=== PATIENT | female | born 1995 | race African-American/Black ===

== ENCOUNTER 2018-03-21 08:12 | Emergency (ER) | payer MEDICAID ==
[2018-03-21] MEDS ORDERED: MAG HYDROX/AL HYDROX/SIMETH SUSP 30 ML UDCUP PO ONE (08:31)
[2018-03-21] MEDS ORDERED: LIDOCAINE 2% VISCOUS SOLN 20 ML UDCUP PO ONE (08:31)
[2018-03-21] MEDS ORDERED: METOCLOPRAMIDE HCL ORAL SOLN 10 MG/10 ML UDCUP PO ONE (08:31)
--- NOTE | 2018-03-21 08:33 | ER Document Report ---
ED General - General Chief Complaint: Abdominal Pain Stated Complaint: ABDOMINAL PAIN Time Seen by Provider: 03/21/18 08:23 Mode of Arrival: Ambulatory Information source: Patient Notes: 23-year-old female presents emergency department complaints of epigastric abdominal pain for the last few days. Patient denies any radiation of the pain. She denies any alleviating or exacerbating factors. She describes the pain as a dull aching sensation. Patient is having associated nausea but denies any vomiting, diarrhea, constipation, dysuria, hematuria, vaginal bleeding, vaginal discharge. Patient denies any medical problems. Patient denies any surgeries. Patient's not currently on any medications. Patient has not tried any [id number] medication for symptom relief. TRAVEL OUTSIDE OF THE [place] IN LAST 30 DAYS: No - HPI Onset: Last week Onset/Duration: Gradual Quality of pain: Achy Severity: Mild Associated symptoms: Nausea Exacerbated by: Denies Relieved by: Denies Similar symptoms previously: No Recently seen / treated by doctor: No - Related Data Allergies/Adverse Reactions: amoxicillin Allergy (Verified 03/21/18 08:14) Penicillins Allergy (Verified 03/21/18 08:14) Past Medical History - General Information source: Patient - Social History Smoking Status: Current Every Day Smoker Family History: Reviewed & Not Pertinent Review of Systems - Review of Systems Constitutional: No symptoms reported EENT: No symptoms reported Cardiovascular: No symptoms reported Respiratory: No symptoms reported Gastrointestinal: Nausea Genitourinary: No symptoms reported Female Genitourinary: No symptoms reported Musculoskeletal: No symptoms reported Skin: No symptoms reported Hematologic/Lymphatic: No symptoms reported Neurological/Psychological: No symptoms reported -: Yes All other systems reviewed and negative Physical Exam - Vital signs Vitals: Temp Pulse Resp BP Pulse Ox 97.8 F 73 14 114/74 100 03/21/18 08:17 03/21/18 08:17 03/21/18 08:17 03/21/18 08:17 03/21/18 08:17 - Notes Notes: PHYSICAL EXAMINATION: GENERAL: Well-appearing, well-nourished and in no acute distress. HEAD: Atraumatic, normocephalic. EYES: Pupils equal round and reactive to light, extraocular movements intact, conjunctiva are normal. ENT: Nares patent, oropharynx clear without exudates. Moist mucous membranes. NECK: Normal range of motion, supple without lymphadenopathy LUNGS: Breath sounds clear to auscultation bilaterally and equal. No wheezes rales or rhonchi. HEART: Regular rate and rhythm without murmurs ABDOMEN: Soft, epigastric tenderness to palpation, nondistended abdomen. No guarding, no rebound. No masses appreciated. Female : deferred Musculoskeletal: Normal range of motion, no pitting or edema. No cyanosis. NEUROLOGICAL: Cranial nerves grossly intact. Normal speech, normal gait. Normal sensory, motor exams PSYCH: Normal mood, normal affect. SKIN: Warm, Dry, normal turgor, no rashes or lesions noted. Course - Re-evaluation Re-evalutation: urine and urine are normal. Patient has tenderness in the epigastric area. No RUQ or LUQ tenderness. Likely has gastritis. Patient instructed to take OTC medication for symptom relief, to follow up with PCP this week, and to return for worsening sympotoms. - Vital Signs Vital signs: Temp Pulse Resp BP Pulse Ox 97.8 F 73 14 114/74 100 03/21/18 08:17 03/21/18 08:17 03/21/18 08:17 03/21/18 08:17 03/21/18 08:17 Discharge - Discharge Clinical Impression: Gastritis Condition: Good Disposition: HOME, SELF-CARE Instructions: Gastritis ([facility]) Prescriptions: Ondansetron [Zofran Odt 4 mg Tablet] 1 tab PO Q4H PRN #15 tab.rapdis PRN Reason: For Nausea/Vomiting Referrals: MIMI SANCHEZ MD [ACTIVE STAFF] - Follow up as needed
[2018-03-21 08:57] LABS: APPEARANCE,URINE SLIGHTLY-CLOUDY; BILIRUBIN,URINE NEGATIVE (NEGATIVE); COLOR,URINE YELLOW; GLUCOSE, URINE NEGATIVE (NEGATIVE); KETONES,URINE NEGATIVE (NEGATIVE); LEUKOCYTE ESTERASE,URINE NEGATIVE (NEGATIVE); NITRITE,URINE NEGATIVE (NEGATIVE); PROTEIN,URINE NEGATIVE (NEGATIVE); URINE SPECIFIC GRAVITY 1.017; UROBILINOGEN,URINE NEGATIVE mg/dL (<2.0)
[2018-03-21 09:29] VITALS: BP 95/59
== END 2018-03-21 09:30 | disposition home or self-care (01) ==
LOC: ER 08:12
DX: K29.70 Gastritis, unspecified, without bleeding (principal); F17.200 Nicotine dependence, unspecified, uncomplicated
CPT/HCPCS: 99284; 81025; 81001; J3490 ×3

== ENCOUNTER 2018-03-30 16:00 | Emergency (ER) | payer MEDICAID ==
[2018-03-30 16:54] LABS: ABSOLUTE EOSINOPHILS # (AUTO) 0.2 10^3/uL (0.0-0.6); ABSOLUTE LYMPHOCYTES (AUTO) 2.1 10^3/uL (0.5-4.7); ABSOLUTE MONOCYTES (AUTO) 0.3 10^3/uL (0.1-1.4); ABSOLUTE NEUT (AUTO) 2.2 10^3/uL (1.7-8.2); BASOPHILS % (AUTO) 0.9 % (0-2); EOSINOPHILS % (AUTO) 3.2 % (0-6); HEMATOCRIT 36.2 % (36.0-47.0); HEMOGLOBIN 11.9 g/dL (12.0-15.5); LYMPHOCYTES % (AUTO) 43.4 % (13-45); MEAN CORPUSCULAR HGB CONC 32.8 g/dL (32.0-36.0); MEAN CORPUSCULAR VOLUME 89 fl (80-97); MONOCYTES % (AUTO) 6.7 % (3-13); PLATELET COUNT 210 10^3/uL (150-450); RED BLOOD COUNT 4.08 10^6/uL (3.72-5.28); RED CELL DISTRIBUTION WIDTH 14.6 % (11.5-14.0); SEGMENTED NEUTROPHILS % (AUTO) 45.8 % (42-78); TOTAL CELLS COUNTED % (AUTO) 100 %; WHITE BLOOD COUNT 4.8 10^3/uL (4.0-10.5)
[2018-03-30 16:55] LABS: APPEARANCE,URINE CLEAR; BILIRUBIN,URINE NEGATIVE (NEGATIVE); COLOR,URINE STRAW; GLUCOSE, URINE NEGATIVE (NEGATIVE); KETONES,URINE NEGATIVE (NEGATIVE); LEUKOCYTE ESTERASE,URINE NEGATIVE (NEGATIVE); NITRITE,URINE NEGATIVE (NEGATIVE); PROTEIN,URINE NEGATIVE (NEGATIVE); URINE SPECIFIC GRAVITY 1.011; UROBILINOGEN,URINE NEGATIVE mg/dL (<2.0)
[2018-03-30 17:10] LABS: ANION GAP 12 (5-19); BLOOD UREA NITROGEN 13 mg/dL (7-20); CALCIUM 9.8 mg/dL (8.4-10.2); CARBON DIOXIDE 22 mmol/L (22-30); CHLORIDE 104 mmol/L (98-107); GLUCOSE 87 mg/dL (75-110); POTASSIUM 3.9 mmol/L (3.6-5.0); SODIUM 138.4 mmol/L (137-145)
[2018-03-30 17:37] LABS: EPITHELIALS (WET MOUNT) 4+ EPITHELIALS SEEN; T.VAGINALIS (WET MOUNT) NO TRICHOMONAS SEEN; WBCS (WET MOUNT) FEW WBCS SEEN; YEAST (WET MOUNT) NO YEAST SEEN
--- NOTE | 2018-03-30 17:49 | RADIOLOGY REPORT (SQ) ---
EXAM DESCRIPTION: U/S OB TRANSVAG W/DOPPLER COMPLETED DATE/TIME: 03/30/2018 5:20 pm REASON FOR STUDY: +preg with bleeding COMPARISON: None. TECHNIQUE: Endovaginal static and realtime grayscale images acquired of the pelvis. Additional selec deonna spectral and color Doppler images recorded. All images stored on PACs. CLINICAL AGE: Last menses 03/08/2018 BHCG: Pending LIMITATIONS: Pelvic bowel gas FINDINGS: UTERUS: No visualized intrauterine . Uterus measures 10 x 5.5 x 4 cm in size. E ndometrial stripe 1 cm in thickness. No intrauterine gestational sac is identified. RIGHT ADNEXA: Not visualized due to poor acoustic window. Pelvic bowel gas. LEFT ADNEXA: Left ovary measures 3.6 x 3.1 x 2.2 cm in size. Normal color flow. Normal left ovary a rterial Doppler. No left adnexal masses. Physiologic free fluid. FREE FLUID: Small amount of physiologic pelvic cul-de-sac fluid. OTHER: No other significant finding. IMPRESSION: NO VISUALIZED INTRA- OR EXTRAUTERINE . bHCG LEVEL NOT AVAILABLE FOR CORRELATION WITH US FINDINGS. ECTOPIC CANNOT BE EXCLUDED. FOLLOW-UP ULTRASOUND AND SERIAL BHCG LEVELS STRONGLY RECOMMENDED TO ACCURATELY ASSESS STATU S. TECHNICAL DOCUMENTATION: JOB ID: [id number] [employer]- All Rights Reserved Reading location - IP/workstation name: [email or web address]
[2018-03-30 18:22] LABS: CHLAM PCR NOT DETECTED (NOT DETECT); GON PCR NOT DETECTED (NOT DETECT)
[2018-03-30 18:52] VITALS: BP 112/58
--- NOTE | 2018-03-30 19:06 | ER Document Report ---
ED General - General Chief Complaint: Pelvic Pain Stated Complaint: ABDOMINAL PAIN Time Seen by Provider: 03/30/18 16:29 TRAVEL OUTSIDE OF THE [place] IN LAST 30 DAYS: No - HPI Patient complains to provider of: Pelvic pain Notes: Patient coming in for pelvic pain ongoing for the last few days. Patient states recently found out that she was . Patient came in for further evaluation of lower pelvic pain. Denies any discharge or dysuria denies any fevers chills nausea vomiting diarrhea patient states that she has been now 6 times with 4 abortions 1 child at home denies any vaginal bleeding. Patient denies any recent sexual intercourse denies any trauma. - Related Data Allergies/Adverse Reactions: amoxicillin Allergy (Verified 03/21/18 08:14) Penicillins Allergy (Verified 03/21/18 08:14) Past Medical History - Social History Smoking Status: Never Smoker Chew tobacco use (# tins/day): No Frequency of alcohol use: None Drug Abuse: None Family History: Reviewed & Not Pertinent Patient has suicidal ideation: No Patient has homicidal ideation: No Pulmonary Medical History: Reports: Hx Bronchitis Renal/ Medical History: Denies: Hx Peritoneal Dialysis Review of Systems - Review of Systems Constitutional: No symptoms reported EENT: No symptoms reported Cardiovascular: No symptoms reported Respiratory: No symptoms reported Gastrointestinal: Other - Pelvic pain Genitourinary: No symptoms reported Female Genitourinary: No symptoms reported Musculoskeletal: No symptoms reported Skin: No symptoms reported Hematologic/Lymphatic: No symptoms reported Neurological/Psychological: No symptoms reported Physical Exam - Vital signs Vitals: Temp Pulse Resp BP Pulse Ox 97.6 F 74 20 106/74 100 03/30/18 16:09 03/30/18 16:09 03/30/18 16:09 03/30/18 16:09 03/30/18 16:09 Interpretation: Normal - General General appearance: Appears well, Alert - HEENT Head: Normocephalic, Atraumatic Eyes: Normal Pupils: PERRL - Respiratory Respiratory status: No respiratory distress Chest status: Nontender Breath sounds: Normal Chest palpation: Normal - Cardiovascular Rhythm: Regular Heart sounds: Normal auscultation Murmur: No - Abdominal Inspection: Normal Distension: No distension Bowel sounds: Normal Tenderness: Nontender Organomegaly: No organomegaly - Back Back: Normal, Nontender - Extremities General upper extremity: Normal inspection, Nontender, Normal color, Normal ROM , Normal temperature General lower extremity: Normal inspection, Nontender, Normal color, Normal ROM , Normal temperature, Normal weight bearing. No: Emiliana's sign - Neurological Neuro grossly intact: Yes Cognition: Normal Orientation: AAOx4 Cecelia Coma Scale Eye Opening: Spontaneous Cecelia Coma Scale Verbal: Oriented [place] Coma Scale Motor: Obeys Commands [place] Coma Scale Total: 15 Speech: Normal Motor strength normal: LUE, RUE, LLE, RLE Sensory: Normal - Psychological Associated symptoms: Normal affect, Normal mood - Skin Skin Temperature: Warm Skin Moisture: Dry Skin Color: Normal Course - Re-evaluation Re-evalutation: 03/30/18 20:45 Patient's beta hCG was only 100 ultrasound does not show any signs of significant pathology also unfortunately at this time cannot confirm an IUP. I did explain to the patient that this will take some time until the beta-hCG level is between 2000 5000. I explained to the patient at this time she is at risk for having an ectopic and that we will need to continue to follow her clinically with serial beta hCGs. Patient was given ectopic precaution instructions patient is to return to ER immediately if any of these happen. Prescription for vitamins and nausea medication were given to the patient. Patient states understanding of the symptoms patient was discharged home. - Vital Signs Vital signs: Temp Pulse Resp BP Pulse Ox 98.2 F 69 20 112/58 L 100 03/30/18 18:52 03/30/18 18:52 03/30/18 18:52 03/30/18 18:52 03/30/18 18:52 - Laboratory Result Diagrams: 03/30/18 16:30 03/30/18 16:30 Laboratory results interpreted by me: 03/30/18 03/30/18 16:30 16:30 Hgb 11.9 L RDW 14.6 H Beta HCG, Quant 107.45 H Discharge - Discharge Clinical Impression: Pelvic pain during Condition: Good Disposition: HOME, SELF-CARE Instructions: Ectopic Precaution ([facility]), Pelvic Pain in ([facility] ) Additional Instructions: Laboratory test today shows that you are . Ultrasound is not showing signs of the in the uterus at this time however your beta hCG levels are too low to expect this. I would recommend following up for repeat beta-hCG testing in the next 48-72 hours. Continue take vitamins she may take the Reglan as prescribed for any nausea that she may have. Recommend follow-up with health department or women's healthcare for further care. Please review discharge instructions carefully return for any worrisome conditions. Prescriptions: Metoclopramide HCl [Reglan] 5 mg PO Q6 #30 tablet Prenat 115/Iron Fum/Folic/Dss [ 19 Tablet] 1 each PO DAILY #30 tablet Forms: Return to Work, Follow-Up Outpatient Testing
== END 2018-03-30 19:09 | disposition home or self-care (01) ==
LOC: ER 16:00
DX: O26.91 Pregnancy related conditions, unspecified, first trimester (principal); R10.2 Pelvic and perineal pain
CPT/HCPCS: 36415; 76817; 80048; 81001; 84702; 85025; 86900; 86901; 87210; 87491; 87591; 93976; 99284

== ENCOUNTER → 2018-04-01 | Outpatient (CLI) | payer MEDICAID | LOC: LAB 09:23 | PROVIDERS: ATTEND Emergency Medicine | DX: R10.9 Unspecified abdominal pain (principal); O26.899 Other specified pregnancy related conditions, unspecified trimester | CPT/HCPCS: 36415; 84702 ==

== ENCOUNTER 2018-04-18 07:45 | Emergency (ER) | payer MEDICAID ==
[2018-04-18 08:03] VITALS: BP 102/56
[2018-04-18] MEDS ORDERED: IBUPROFEN 600 MG TABLET PO ONE (08:14)
--- NOTE | 2018-04-18 09:16 | RADIOLOGY REPORT (SQ) ---
EXAM DESCRIPTION: WRIST RIGHT 3 VIEWS COMPLETED DATE/TIME: 04/18/2018 8:43 am REASON FOR STUDY: hit back of hand/wrist on door COMPARISON: None. NUMBER OF VIEWS: Three views. TECHNIQUE: AP, lateral, and oblique radiographic images acquired of the right wrist. LIMITATIONS: None. FINDINGS: MINERALIZATION: Normal. BONES: No acute fracture or dislocation. No worrisome bone lesions. Normal alignment. SOFT TISSUES: No soft tissue swelling. No foreign body. OTHER: No other significant finding. IMPRESSION: 1. NEGATIVE STUDY OF THE RIGHT WRIST. TECHNICAL DOCUMENTATION: JOB ID: [id number] [employer]- All Rights Reserved Reading location - IP/workstation name: [email or web address]
--- NOTE | 2018-04-18 09:17 | RADIOLOGY REPORT (SQ) ---
EXAM DESCRIPTION: HAND RIGHT 3 VIEWS COMPLETED DATE/TIME: 04/18/2018 8:43 am REASON FOR STUDY: hit back of hand/wrist on door COMPARISON: None. EXAM PARAMETERS: NUMBER OF VIEWS: Three views. TECHNIQUE: AP, lateral and oblique radiographic images acquired of the right hand. LIMITATIONS: None. FINDINGS: MINERALIZATION: Normal. BONES: No acute fracture or dislocation. No worrisome bone lesions. JOINTS: No effusions. SOFT TISSUES: No soft tissue swelling. No foreign body. OTHER: No other significant finding. IMPRESSION: 1. NEGATIVE STUDY OF THE RIGHT HAND. TECHNICAL DOCUMENTATION: JOB ID: [id number] [employer]- All Rights Reserved Reading location - IP/workstation name: [email or web address]
--- NOTE | 2018-04-18 09:23 | ER Document Report ---
ED Hand/Wrist Injury - General Chief Complaint: Wrist Pain Stated Complaint: RIGHT WRIST INJURY Time Seen by Provider: 04/18/18 08:04 Mode of Arrival: Ambulatory Information source: Patient Notes: Patient is a 23-year-old female who presents to the ER today for right wrist pain after accidentally back handing a door last night. Patient denies any numbness or tingling, states that it hurts a lot to try to rotate the wrist. TRAVEL OUTSIDE OF THE [place] IN LAST 30 DAYS: No - Related Data Allergies/Adverse Reactions: amoxicillin Allergy (Verified 04/18/18 07:47) Penicillins Allergy (Verified 04/18/18 07:47) Past Medical History - General Information source: Patient - Social History Smoking Status: Former Smoker Family History: Reviewed & Not Pertinent Patient has suicidal ideation: No Patient has homicidal ideation: No Pulmonary Medical History: Reports: Hx Bronchitis Renal/ Medical History: Denies: Hx Peritoneal Dialysis Review of Systems - Review of Systems Constitutional: No symptoms reported EENT: No symptoms reported Cardiovascular: No symptoms reported Respiratory: No symptoms reported Gastrointestinal: No symptoms reported Genitourinary: No symptoms reported Female Genitourinary: No symptoms reported Musculoskeletal: See HPI Skin: No symptoms reported Hematologic/Lymphatic: No symptoms reported Neurological/Psychological: No symptoms reported Physical Exam - Vital signs Vitals: Temp Pulse Resp BP Pulse Ox 98.4 F 92 18 102/56 L 100 04/18/18 08:01 04/18/18 08:01 04/18/18 08:01 04/18/18 08:01 04/18/18 08:01 - Notes Notes: PHYSICAL EXAMINATION: GENERAL: Well-appearing and in no acute distress. HEAD: Atraumatic, normocephalic. EYES: Pupils equal round and reactive to light, extraocular movements intact, sclera anicteric, conjunctiva are normal. The patient limited range of motion of the right wrist secondary to pain nECK: Normal range of motion, supple without lymphadenopathy LUNGS: CTAB and equal. No wheezes rales or rhonchi. HEART: Regular rate and rhythm without murmurs EXTREMITIES: Limited range of motion of the right wrist secondary to pain, no pitting edema. No cyanosis. NEUROLOGICAL: Cranial nerves grossly intact. Normal sensory/motor exams. PSYCH: Normal mood, normal affect. SKIN: Warm, Dry, normal turgor, no rashes or lesions noted Course - Re-evaluation Re-evalutation: 04/18/18 09:22 No edema, ecchymosis or deformity to the right wrist, patient placed in cockup splint for comfort, x-rays negative for any acute pathology today. - Vital Signs Vital signs: Temp Pulse Resp BP Pulse Ox 98.4 F 92 18 102/56 L 100 04/18/18 08:01 04/18/18 08:01 04/18/18 08:01 04/18/18 08:01 04/18/18 08:01 Discharge - Discharge Clinical Impression: Right wrist injury Qualifiers: Encounter type: initial encounter Qualified Code(s): S69.91XA - Unspecified injury of right wrist, hand and finger(s), initial encounter Condition: Stable Disposition: HOME, SELF-CARE Additional Instructions: Return immediately for any new or worsening symptoms. Follow up with primary care provider, call tomorrow to make followup appointment. Prescriptions: Ibuprofen [Motrin 600 Mg Tablet] 600 mg PO TID #15 tablet Referrals: VIPIN OREILLY MD [ACTIVE STAFF] - Follow up as needed
== END 2018-04-18 09:38 | disposition home or self-care (01) ==
LOC: ER 07:45
DX: S69.91XA Unspecified injury of right wrist, hand and finger(s), initial encounter (principal); W22.09XA Striking against other stationary object, initial encounter
CPT/HCPCS: 99283; 73130; 73110; L3908; J3490

== ENCOUNTER 2018-04-23 08:28 | Emergency (ER) | payer MEDICAID ==
--- NOTE | 2018-04-23 09:20 | ER Document Report ---
ED Medical Screen (RME) - General Chief Complaint: Abdominal Cramping Stated Complaint: CRAMPING/ABDOMINAL PAIN Time Seen by Provider: 04/23/18 09:20 Notes: Patient is a 23-year-old female, , approximately 7 weeks gravid that presents to the emergency department for chief complaint of pelvic cramping. Patient reports the pain started on , describes it as severe and constant in bilateral. ROS: Other than noted above, the 12 point review of systems was reviewed with the patient and were negative, all pertinent findings are included in the HPI. PHYSICAL EXAMINATION: Vital signs reviewed. GENERAL: Well-appearing, well-nourished and in no acute distress. HEAD: Atraumatic, normocephalic. EYES: Pupils equal round extraocular movements intact, conjunctiva are normal. ENT: Nares patent NECK: Normal range of motion CV: Heart regular rate and rhythm LUNGS: No respiratory distress Musculoskeletal: Normal range of motion NEUROLOGICAL: Normal speech PSYCH: Normal mood, normal affect. MDM: Patient seen and examined for rapid initial assessment. Vital signs reviewed. A comprehensive ED assessment and evaluation of the patient, analysis of test results and completion of the medical decision making process will be conducted by additional ED providers. *Note is created using voice recognition software and may contain spelling, syntax or grammatical errors. TRAVEL OUTSIDE OF THE [place] IN LAST 30 DAYS: No - Related Data Allergies/Adverse Reactions: amoxicillin Allergy (Verified 04/23/18 08:30) Penicillins Allergy (Verified 04/23/18 08:30) Past Medical History - Social History Frequency of alcohol use: None Drug Abuse: None Pulmonary Medical History: Reports: Hx Bronchitis Renal/ Medical History: Denies: Hx Peritoneal Dialysis Physical Exam - Vital signs Vitals: Temp Pulse Resp BP Pulse Ox 98.3 F 85 18 109/58 L 100 04/23/18 08:38 04/23/18 08:38 04/23/18 08:38 04/23/18 08:38 04/23/18 08:38 Course - Vital Signs Vital signs: Temp Pulse Resp BP Pulse Ox 98.3 F 85 18 109/58 L 100 04/23/18 08:38 04/23/18 08:38 04/23/18 08:38 04/23/18 08:38 04/23/18 08:38
[2018-04-23] MEDS ORDERED: ACETAMINOPHEN 325 MG TABLET PO ONE (09:21)
--- NOTE | 2018-04-23 09:44 | ER Document Report ---
ED General - General Chief Complaint: Abdominal Cramping Stated Complaint: CRAMPING/ABDOMINAL PAIN Time Seen by Provider: 04/23/18 09:20 TRAVEL OUTSIDE OF THE [place] IN LAST 30 DAYS: No - HPI Notes: Patient is a 23-year-old female, , approximately 7 weeks who presents to the ED complaining of intermittent pelvic cramping over the last 5 days. Patient states that she will have occasional nausea without vomiting. She reports 4 previous abortions. She is otherwise able to eat and drink without any difficulties. She is urinating normally. Patient states that on occasion she will have soft/loose stool, but is not watery. Patient has not had any confirmatory testing. Patient has not had any other vaginal discharge, odor, or bleeding. She has no concern of STD or STI and declines any testing at this time denies any headache, fever, URI, sore throat, chest pain, palpitations, syncope, cough, shortness of breath, wheeze, dyspnea, vomiting/ diarrhea, urinary retention, dysuria, hematuria, back pain, loss of control of bowel or bladder, numbness/tingling, saddle anesthesia, muscle paralysis/ weakness, or rash. - Related Data Allergies/Adverse Reactions: amoxicillin Allergy (Verified 04/23/18 08:30) Penicillins Allergy (Verified 04/23/18 08:30) Past Medical History - Social History Smoking Status: Never Smoker Frequency of alcohol use: None Drug Abuse: None Family History: Reviewed & Not Pertinent Patient has suicidal ideation: No Patient has homicidal ideation: No Pulmonary Medical History: Reports: Hx Bronchitis Renal/ Medical History: Denies: Hx Peritoneal Dialysis Review of Systems - Review of Systems -: Yes All other systems reviewed and negative Physical Exam - Vital signs Vitals: Temp Pulse Resp BP Pulse Ox 98.3 F 85 18 109/58 L 100 04/23/18 08:38 04/23/18 08:38 04/23/18 08:38 04/23/18 08:38 04/23/18 08:38 - Notes Notes: PHYSICAL EXAMINATION: GENERAL: Well-appearing, well-nourished and in no acute distress. LUNGS: Breath sounds clear to auscultation bilaterally and equal. No wheezes rales or rhonchi. HEART: Regular rate and rhythm without murmurs, rubs, gallops. ABDOMEN: Soft, nondistended abdomen. No guarding, no rebound. No masses appreciated. Normal bowel sounds present. No CVA tenderness bilaterally. + mild suprapubic tenderness. : deferred. Pt declined. Musculoskeletal: FROM to passive/active. Strength 5+/5. Extremities: No cyanosis, clubbing, or edema b/l. Peripheral pulses 2+. Capillary refill less than 3 seconds. NEUROLOGICAL: Normal speech, normal gait. PSYCH: Normal mood, normal affect. SKIN: Warm, Dry, normal turgor, no rashes or lesions noted. Course - Re-evaluation Re-evalutation: 04/23/18 11:49 Patient is an afebrile, well-hydrated, 23-year-old female who presents to the ED with abdominal pain unspecified and intrauterine . Vitals are acceptable without any significant tachycardia, tachypnea, or hypoxia. PE is otherwise unremarkable. UA unremarkable. HCG appropriate. TVUS shows evidence IUP w/o obvious bleed at approx 8wk 1 day. Patient is nontoxic- appearing is tolerating p.o. without any difficulties. No other labs or imaging warranted at this time based on H&P. Patient's abdomen is currently soft and nontender. She has not had any deterioration throughout her stay. Low suspicion/risk for acute appendicitis, bowel obstruction, acute cholecystitis, acute cholangitis, perforated diverticulitis, incarcerated hernia , pancreatitis, perforated ulcer, peritonitis, sepsis, pelvic inflammatory disease, ectopic , tubo-ovarian abscess, ovarian torsion, or other systemic emergent condition at this time. Patient is aware that her condition can change from initial presentation and she needs to monitor symptoms closely and seek medical attention if any acute changes. Conservative measures otherwise for symptoms. Recheck with your PCM/OBGYN in 3-5 days. Return to the ED with any worsening/concerning symptoms otherwise as reviewed in discharge. Patient is in agreement. - Vital Signs Vital signs: Temp Pulse Resp BP Pulse Ox 98.3 F 85 18 109/58 L 100 04/23/18 08:38 04/23/18 08:38 04/23/18 08:38 04/23/18 08:38 04/23/18 08:38 - Laboratory Laboratory results interpreted by me: 04/23/18 09:25 Beta HCG, Quant 959743.00 H Discharge - Discharge Clinical Impression: Abdominal pain during intrauterine Condition: Stable Disposition: HOME, SELF-CARE Instructions: Abdominal Pain ([facility]), ([facility]), Pelvic Pain in ( [facility]) Additional Instructions: Maintain fluid intake Proper hygienic technique Keep the skin clean Tylenol as needed Check in with the health department this week for further testing if warranted F/u with your PCM/OBGYN in 3-5 days for a recheck Return to the ED with any development of LANDRY/fever, trouble with vision, eye redness, worsening pain, urethral discharge, urinary retention, blood in the urine, flank pain, abdominal pain, n/v, Chest Pain, shortness of breath, joint pains, trouble breathing, or any other worsening/concerning symptoms as needed otherwise. Prescriptions: Ondansetron [Zofran Odt 4 mg Tablet] 1 - 2 tab PO Q4H PRN #15 tab.rapdis PRN Reason: For Nausea/Vomiting Referrals: [facility] [Provider Group] - Follow up in 3-5 days
[2018-04-23 10:21] LABS: APPEARANCE,URINE CLEAR; BILIRUBIN,URINE NEGATIVE (NEGATIVE); COLOR,URINE STRAW; GLUCOSE, URINE NEGATIVE (NEGATIVE); KETONES,URINE NEGATIVE (NEGATIVE); LEUKOCYTE ESTERASE,URINE NEGATIVE (NEGATIVE); NITRITE,URINE NEGATIVE (NEGATIVE); PROTEIN,URINE NEGATIVE (NEGATIVE); UROBILINOGEN,URINE NEGATIVE mg/dL (<2.0)
--- NOTE | 2018-04-23 11:43 | RADIOLOGY REPORT (SQ) ---
EXAM DESCRIPTION: U/S OB TRANSVAGINAL W/O DOP COMPLETED DATE/TIME: 04/23/2018 11:31 am REASON FOR STUDY: pelvic pain, 7 wks gravid COMPARISON: None. TECHNIQUE: Endovaginal static and realtime grayscale images acquired of the pelvis. Additional selec deonna spectral and color Doppler images recorded. All images stored on PACs. bHCG: Not available CLINICAL DATES: 03/01/2018 LIMITATIONS: None. FINDINGS: FETUS: Single Living intrauterine . ULTRASOUND EGA: 8 weeks 1 day ULTRASOUND TRAVIS: 12/02/2018 EFW: Not applicable less than 20 weeks. CRL: 9 mm FHR: 133 beats per minute. SURVEY: Too early to assess. AMNIOTIC FLUID: Adequate amount. PLACENTA: Not yet developed due to early gestation. SUBCHORIONIC BLEED: None SIZE OF BLEED: Not applicable. UTERUS: Subcentimeter fundal fibroid. Uterus is 10 x 6 x 5.5 cm in size. CERVICAL LENGTH: Closed, 3 cm in length. RIGHT ADNEXA: Ovary not identified due to poor acoustical window. No adnexal free fluid. No adnexal masses. LEFT ADNEXA: Normal ovary with normal vascular flow. Left ovary 2.6 x 2.5 x 2 cm in size. No adnexal free fluid. No adnexal masses. FREE FLUID: None. OTHER: No other significant finding. IMPRESSION: LIVING INTRAUTERINE . EGA 8 weeks 1 day Trimester of : First - 0 to 13 weeks. TECHNICAL DOCUMENTATION: JOB ID: [id number] [employer]- All Rights Reserved Reading location - IP/workstation name: [email or web address]
[2018-04-23 12:50] VITALS: BP 97/53
== END 2018-04-23 12:49 | disposition home or self-care (01) ==
LOC: ER 08:28
DX: O26.899 Other specified pregnancy related conditions, unspecified trimester (principal); R10.2 Pelvic and perineal pain; R11.0 Nausea; R19.4 Change in bowel habit; Z3A.00 Weeks of gestation of pregnancy not specified; Z88.0 Allergy status to penicillin
CPT/HCPCS: 36415; 76817; 81001; 84702; 99284